=== PATIENT | female | born 1980 | race Caucasian/White ===

== ENCOUNTER 2017-02-27 16:41 | Emergency (ER) | payer BC ==
[2017-02-27 17:01] VITALS: BP 129/90; BMI 22.9
--- NOTE | 2017-02-27 17:57 | DR.GENAD ---
HPI - PCP Primary Care Physician: DR. LEY - Complaint/Symptoms Chief Complaint Doctors Comments: Patient diagnosed with lymphadenitis suppruca with recurrent flair ups. Chief Complaint:: PT HAS HX ABCESS PT HAS ONE TO HER LEFT AXILLA SMALL RAISED AREA NOTED WITH EDMA AND REDNESS NO DRAINAGE NOTED .. BR Self Treatment fo Chief Complaint: DESITIN, HOT RAG - Source History Provided: Patient - Mode of Arrival Mode of Arrival: Ambulatory - Timing Onset of Chief Complaint: 02/23/17 PMH - PMH Past Medical History: Yes Past Medical History: Hypothyroidism Past Surgical History: Yes Past Surgical History Comment: ABCESS, UNDER ARM GROIN, D & C TIMES FOUR, - Family History History of Family Medical Conditions: Yes Family Medical History: Cancer - Social History Does patient currently use any type of tobacco product: Yes Have you used tobacco products in the last 12 months: Yes Type of Tobacco Use: Cigarettes How many years tobacco product used: 20 Does any household member use tobacco: No Alcohol Use: Rarely Do you use any recreational Drugs:: No Lives With: Family Lives Where: Home - infectious screening In the last 2 months have you had wt loss of >10#?: NO Have you had fever, night sweats or hemotysis?: No Have you traveled outside the country in the last 6 months?: No Isolation: Standard ROS - Review of Systems Eyes: No Symptoms Reported ENTM: No Symptoms Reported Respiratoy: No Symptoms Reported Cardiovascular: No Symptoms Reported Gastrointestinal/Abdominal: No Symptoms Reported Genitourinary: No Symptoms Reported Neurological: No Symptoms Reported Musculoskeletal: No Symptoms Reported Integumentary: Lesions (left axilla) Hematologic/Lymphatic: No Symptoms Reported Endocrine: No Symptoms Reported Psychiatric: No Symptoms Reported All Other Systems: Reviewed and Negative PE - Vital Signs Vitals: Pulse Rate 103 Respiratory Rate 20 Blood Pressure 129/90 O2 Sat by Pulse Oximetry 98 - General General Appearance: Alert, In No Apparent Distress - Head Head Exam: Normal Inspection, Atraumatic - Eyes Eye exam: Normal Appearance, PERRL, EOMI - ENT ENT Exam: Normal Exam External Ear Exam: Normal External Inspection TM/Canal Exam: Bilateral Normal Nose Exam: Normal Nose Exam Mouth Exam: Normal Inspection Throat Exam: Normal Inspection - Neck Neck Exam: Normal Inspection - Chest Chest Inspection: Normal Inspection - Respiratory Respiratory Exam: Normal Lung Sounds Bilat Respiratory Exam: Bilateral Clear to Auscultation - Cardiovascular Cardiovascular Exam: Regular Rate, Normal Rhythm - Abdominal Exam Abdominal Exam: Normal Inspection Abdominal Tenderness: negative: RUQ, RLQ, LUQ, LLQ, Epigastrium, Suprapubic, Diffuse, Mild, Moderate, Severe, Other - Extremities Extremities Exam: Normal Inspection, Full ROM - Back Back Exam: Normal Inspection, Full ROM - Neurologic Neurological Exam: Alert, Oriented X3, CN II-XII Intact - Psychiatric Psychiatric Exam: Normal Affect - Skin Skin Exam: Warm, Dry, Intact Course - Reevaluation 1st: Improved - Diagnosis Discharge Problem: Suppurative lymphadenitis - Discharge Plan Condition: Stable - Follow ups/Referrals Follow ups/Referrals: NFD,None [Primary Care Provider] - 3 days - Instructions
[2017-02-27] MEDS ORDERED: ROCEPHIN VIAL 1 GM IM ONE (17:58)
[2017-02-27] MEDS ORDERED: DILAUDID INJ IM ONE (17:59)
[2017-02-27] MEDS ORDERED: ROCEPHIN VIAL 1 GM ONE (18:03)
[2017-02-27] MEDS ORDERED: DILAUDID INJ ONE (18:03)
== END 2017-02-27 18:37 | disposition home or self-care (01) ==
LOC: ER 16:55
DX: L04.8 Acute lymphadenitis of other sites (principal)
CPT/HCPCS: 96372; 99282; J0696